=== PATIENT | male | born 1985 | race Caucasian/White ===

== ENCOUNTER 2017-11-11 09:21 | Emergency (ER) | payer OTHER ==
--- NOTE | 2017-11-11 09:27 | EDPHY ---
H & P Time Seen by Provider: 11/11/17 09:26 HPI/ROS: CHIEF COMPLAINT: Neck and head pain HISTORY OF PRESENT ILLNESS: This is a 32-year-old immunocompetent male who presents with 4 days of illness. The illness began with fever (subjective). In addition he has had diffuse myalgias and fatigue. His appetite has been poor but he has been able to eat and drink a bit. On the 2nd day of this illness he took 1 dose of Tylenol cold and flu but has not otherwise taken any medications for symptom relief. He forced himself to go to work yesterday. He presents today concerned about stiffness of his upper posterior neck and a dull aching pain at the back of his head. He occasionally has what he describes as "nerve pain"in both arms. Overall the symptoms have been waxing and waning. He has not had sore throat or cough. He had mild nausea at the beginning of the illness but none since and no vomiting. He has not had diarrhea or constipation. No abdominal pain. No change in urination. He denies confusion , change in hearing, visual changes, new weakness, difficulty walking. REVIEW OF SYSTEMS: A ten point review of systems was performed and is negative with the exception of the items mentioned in the HPI. Past medical history: Concussion Past surgical history: Right wrist surgery following fracture Social history: He lives with his . He works in IT. He does not use tobacco products. He drinks alcohol on occasion. General Appearance: Alert. Vital signs reviewed. Temperature 37 degrees. Blood pressure 104/71. Eyes: Pupils equal and round, no conjunctival injection, no discharge. Anicteric. ENT, Mouth: Mucous membranes are moist, no oropharyngeal erythema or edema. Tympanic membrane normal. No facial or sinus tenderness. Neck: No lymphadenopathy. Pain with attempted range of motion of his neck. No palpable muscle spasm. Respiratory: Lungs are clear to auscultation; no wheezes, rales, or rhonchi. Cardiovascular: Regular rate and rhythm; no murmur, rub, or gallop. Gastrointestinal: Abdomen is soft and nontender, no masses or organomegaly, bowel sounds normal. Skin: Warm and dry, no rashes on exposed skin, normal color. Back: Nontender to palpation over the thoracolumbar spine. Extremities: No lower extremity edema, no calf tenderness or swelling. Neurological: Alert and oriented. Moving all four extremities easily and equally. Cranial nerves 2-12 are examined and are intact. Visual acuity was not formally checked. Optic discs are sharp. Strength is 5 over 5 bilaterally with testing of all major motor groups. Sensation is intact to light and sharp touch over all 4 extremities. Deep tendon reflexes are 1+ in the biceps and knees bilaterally. No clonus. Gait is normal. Psychiatric: Normal affect. Constitutional: Initial Vital Signs Temperature (C) 37.0 C 11/11/17 09:31 Heart Rate 93 11/11/17 09:31 Respiratory Rate 18 11/11/17 09:31 Blood Pressure 104/71 11/11/17 09:31 O2 Sat (%) 96 11/11/17 09:31 O2 Delivery Mode Room Air Allergies/Adverse Reactions: Iodinated Contrast- Oral and IV Dye Allergy (Verified 11/11/17 09:31) Home Medications: Medication Instructions Recorded NK [No Known Home Meds] 11/11/17 Medical Decision Making ED Course/Re-evaluation: I spoke at length with the patient and his concerning diagnostic possibilities and testing. He does not have fever today but this illness began with fever. I recommended lumbar puncture to assess for meningitis--with my primary concern being viral meningitis. They both understand that there is no treatment for viral meningitis other than symptomatic measures. I did discuss the possibility of herpes virus is a possible etiology of viral meningitis and stated that this is usually treated with an antiviral medication and that herpes meningitis can have long lasting effects. He does not have any signs of encephalopathy. Neuroloigc exam is normal. He is afebrile in the ED. He is alert fully oriented, capable of making his own medical decisions. He understands that meningitis can be a dangerous, even life-threatening illness. He does not want to go undergo lumbar puncture. The risks and benefits were explained to him. He understands that the diagnosis remains unclear at this point in time. I doubt that this is a bacterial meningitis, given the time frame. I suspect viral meningitis. Given the history I do not think that this is subarachnoid hemorrhage. He does not have a history of headaches on this is not consistent with migraine or cluster. He does not appear to have torticollis. He has not had signs or symptoms of sinusitis or pharyngitis. We discussed symptomatic treatment and use agreed to try [id number] pain/ fever medications. We reviewed the danger signs that should prompt him to be re -evaluated immediately. He has agreed that he will return if he worsens in any way. He is given a referral for primary care physician. Differential Diagnosis: Headache including but not limited to subarachnoid hemorrhage, migraine headache , tension headache and infectious causes such as meningitis, pharyngitis and sinusitis. Fever in adults including but not limited to pneumonia, urinary tract infection, viral syndrome, and influenza. Departure - Departure Disposition: Home, Routine, Self-Care Clinical Impression: Viral syndrome Condition: Good Instructions: Viral Meningitis (ED), Viral Syndrome (ED) Additional Instructions: As we discussed, the diagnosis is based on a history of your illness and physical examination--no diagnostic testing (such as a spinal tap) has been performed to verify the diagnosis. If you are worse in any way--confusion, new numbness, new weakness, return of fever, worsening head or neck pain--please be re-evaluated immediately. Adult Pain & Fever Control: We recommend Acetaminophen (Tylenol) and Ibuprofen (Motrin,Advil) for pain and fever control. When fever is high or pain severe, both drugs can be used at the same time, but at different intervals. Please note the time differences. Your dose is: Acetaminophen 650mg every 4 to 6 hours Ibuprofen 400mg every 6 hours with food Note: do not take Acetaminophen with Hydrocodone (Vicodin, Lortab) or Oycodone (Percocet). These medications also contain Acetaminophen. No more than 3000mg of Acetaminophen should be taken in 24 hours (for an adult). I urge you to use Tylenol and ibuprofen to treat your pain. I am referring you to Dr. Aggarwal for primary care. Referrals: Prudence Aggarwal MD [Medical Doctor] - As per Instructions Stand Alone Forms: Work Excuse
[2017-11-11 09:33] VITALS: BP 104/71; PULSE 93; RESP 18; TEMP 98.6; O2SAT 96
== END 2017-11-11 10:20 | disposition home or self-care (01) ==
LOC: CED 09:21
DX: B34.9 Viral infection, unspecified (principal)